=== PATIENT | female | born 1950 | race Caucasian/White ===

== ENCOUNTER → 2016-10-19 | Outpatient (CLI) | payer MEDICARE, MEDICAID ==
[~2016-10-19] MED LIST: ASPI-131 PO; ASPI-558 PO; CALC1TAB36 PO; CELE-34 PO; CITA20TA9 PO; ESTR1TAB77 PO; GABA-215 PO; GEMF600T61 PO; LEVO75TA57 PO; LISI-621 PO; MULT-795 PO
--- NOTE | 2016-10-19 16:43 | DI ---
Indication: ITS.REASON: R07.81 LT UPPER CHEST WALL PAIN PROCEDURE: RIBS LEFT WITH AP CHEST: Encounter: Initial Comparison: None FINDINGS: Chest: The lungs are clear. There is no abnormal airspace opacity, pleural effusion or pneumothorax identified. The heart size, pulmonary vasculature and mediastinum are within normal limits. AP and oblique views of the left ribs: No displaced rib fracture is seen. IMPRESSION: No acute cardiopulmonary abnormality. .
== END ==
LOC: IMA.CCC 16:14
PROVIDERS: ATTEND Nurse Practitioner Family
DX: R07.81 Pleurodynia (principal); Z91.81 History of falling